=== PATIENT | male | born 1970 | race Caucasian/White ===

== ENCOUNTER → 2019-08-09 11:12 | Outpatient (BNVA) | payer BC, SELFPAY | PROVIDERS: Family Provider Nurse Practitioner; PCP Nurse Practitioner; Visit Provider Nurse Practitioner | DX: J40 Bronchitis, not specified as acute or chronic (principal); R05 Cough | CPT/HCPCS: 71046; 85025 ==

== ENCOUNTER → 2019-08-31 10:22 | Outpatient (BNVA) | payer BC, SELFPAY | PROVIDERS: Family Provider Nurse Practitioner; PCP Nurse Practitioner; Visit Provider Nurse Practitioner Family | DX: R05 Cough (principal) | CPT/HCPCS: 71046 ==

== ENCOUNTER 2019-09-30 15:46 | Outpatient (CLI) | payer BC, SELFPAY ==
--- NOTE | 2019-09-30 15:50 | CT_ITS ---
WS: [id number] CT scan of the chest without IV contrast, additional two-dimensional coronal and sagittal reconstruct ion was performed. 09/30/2019 Clinical Data: FOREIGN BODY IN PHARYNX Comparison: None. DLP: 973.[address] scans at [facility] use at least one of these dose optimization techniques: automat ed exposure control; mA and/or kV adjustment per patient size (includes targeted exams where dose is matched to clinical indication); or iterative reconstruction. Findings: There is a patchy opacity in the right lower lobe which could represent obstructive pneumonia. The pa tient may have ingested a foreign body which is partially blocking the right lower lobe bronchus alth ough no definite foreign body is seen within the right lower lobe bronchus. This opacity could also r epresent an allergic pneumonia. The remainder of the lungs is clear. The trachea bifurcates normally into the bronchi. No nodules, masses or effusions are seen. The heart size is normal with no pericardial effusion. The pulmonary arterial system and thoracic aorta demonstrate no abnormalities or dilatations. There is no axillary or significant mediastinal adenopathy. The upper abdomen is not remarkable. The bony thorax is normal. CT/CT chest wo con [id number] Impression: 1. Patchy opacity in right lower lobe which could represent obstructive or ozzy rgic pneumonia. 2. Recommend repeat PA and lateral chest or CT chest following bronchoscopy.
== END 2019-09-30 15:47 | disposition home or self-care (01) ==
LOC: RADWPI 15:49
PROVIDERS: Family Provider Nurse Practitioner; PCP Nurse Practitioner; Visit Provider Nurse Practitioner Family
DX: T17.208A Unspecified foreign body in pharynx causing other injury, initial encounter (principal); X58.XXXA Exposure to other specified factors, initial encounter
CPT/HCPCS: 71250

== ENCOUNTER 2019-10-05 10:36 | Day surgery (SDC) | payer BC, SELFPAY ==
[2019-10-04 15:35] VITALS: BMI 27.1
[2019-10-05 10:46] VITALS: BP 115/88; PULSE 71; RESP 18; TEMP 36.9; O2SAT 97
[2019-10-05 11:14] VITALS: RESP 18; O2SAT 98
[2019-10-05] MEDS: fentaNYL 50 mcg/mL INJ 2mL IVP (11:14)
[2019-10-05] MEDS: sodium chloride 0.9% 1,000 ML 30 ML IV (11:26)
--- NOTE | 2019-10-05 11:38 | ANES.PREANE2 ---
Pre-Anesthetic Assessment Pre-Anesthetic Assessment: Height/Weight: Height 1.85 m Weight 93.44 kg Temp Pulse Resp BP Pulse Ox 98.4 F 71 18 115/88 98 10/05/19 10:46 10/05/19 10:46 10/05/19 11:14 10/05/19 10:46 10/05/19 11:14 Preop Diagnosis: Aspirated foreign body Proposed Procedure: Operation Date: 10/05/19 12:10 Proposed Procedures p Bronchoscopy(Not Applicable) - Ilya Hawkins MD Familial anesthetic complications: None Was Beta Fadi taken within 24 hours: N/A Last intake: Intake NPO > 8 hrs Last Liquid Date 10/04/19 Last Solid Date 10/04/19 Social: Social History: No alcohol and No tobacco Exam: Pre-Anes Outpt Exam: alert, oriented x 3, clear to auscultation bilaterally and regular rate & rhythm Additional Exam Findings (including area of procedure): slight wheeze R lower lung Airway: Cervical ROM: WNL MP: 2 Dentition: Other (missing) Pulmonary: Comments: allergies RLL pneumonia w/ foreign body aspiration - pistachio shell Anesthetic Plan: ASA status: 2 Anesthesia: General Risk of > 500 ml blood loss (7ml/kg in children): No Meds/Allergies Current Medications: Current Medications Generic Name Dose Route Start Last Admin Trade Name Freq PRN Reason Stop Dose Admin Fentanyl 50 mcg 10/05/19 07:23 10/05/19 11:14 Sublimaze IVP 50 mcg Q10M PRN Administration Preop Pain Sodium Chloride 1,000 mls @ 30 ml s/hr 10/05/19 07:30 10/05/19 11:26 Sodium Chloride 0.9% IV 10/06/19 07:29 30 mls/hr .Q24H THEODORE Administration PFSH Anesthesia PFSH: Medical History (Updated 10/03/19 @ 12:59 by Ilya Hawkins MD) DDD (degenerative disc disease), lumbosacral Environmental and seasonal allergies Surgical History No history of previous surgery Family History Other Cancer Denies family history of Bleeding disorder Social History Smoking and tobacco status: never smoked Second hand smoke exposure: No Smoking risk assessment/counseling performed?: No Alcohol intake: current Alcohol intake frequency: holidays/special occasions only Desire information about alcohol rehabilitation?: No Counseling given: No Desire information about substance/drug rehabilitation?: No Counseling given: No Adopted: No Caregiver/support person: No Lives independently: Yes Household members: spouse Housing: House Marital status: Current occupational status: employed Current occupation: Self-Employed History of recent travel: No Current gender identity: Male Data Anesthesia Cardiac Studies: No Data to Display
--- NOTE | 2019-10-05 11:58 | W.PM.OPSUD ---
Surgery/Procedure H&P Update DATE OF PROCEDURE: October 05, 2019 DATE H&P PERFORMED: 10/03/19 H&P UPDATE INFORMATION: I have reviewed H&P completed within last 30 days, I have examined patient prior to procedure and No changes to prior documentation PREOP DIAGNOSIS: Aspirated foreign body PLANNED PROCEDURE: Bronchoscopy with inspection of the airway, removal of the foreign body, control of bleeding Operation Date: 10/05/19 12:10 Proposed Procedures p Bronchoscopy(Not Applicable) - Ilya Hawkins MD
[2019-10-05 12:55] VITALS: RESP 18; O2SAT 99
[2019-10-05] MEDS: fentaNYL 50 mcg/mL INJ 2mL 100 MCG IVP (12:55)
--- NOTE | 2019-10-05 13:25 | PM.OP ---
Operative Report Date of procedure: October 05, 2019 Pre-op Diagnosis: Aspirated foreign body Post-op diagnosis: same Brief History: This is a 49-year-old gentleman who is undergoing bronchoscopic evaluation for foreign body aspiration. Procedure: Name of the procedure: Bronchoscopy with bronchoalveolar lavage, removal of foreign body and control of bleeding. Indication: Aspirated foreign body. Anesthesia: Monitored anesthesia care. Local anesthesia: 1% lidocaine instilled on the vocal cords, 3 mL, 1% lidocaine in the airway and mert a total of 5 mL. Description of the procedure: The patient was positioned optimally. Monitored anesthesia care was initiated by the anesthesia team. The bronchoscope was advanced through the mouth. The vocal cords and epiglottis were anesthetized with 1% lidocaine. The bronchoscope was passed through the vocal cords and the airway was anesthetized with 1% lidocaine again. In a systematic way bilateral lung slide and examined. The bronchoscope was advanced into the left mainstem bronchus and advanced into the left upper lobe, lingula and lower lobes. All segments were examined up to third subsegmental level. There was no abnormalities. The bronchoscope was then introduced into the right mainstem bronchus. A foreign body occluding the right bronchus intermedius was immediately visualized. The right upper lobe bronchus and segments were without abnormalities. There was significant erythema around the foreign body. Using a forcep the foreign body was removed. The foreign body appeared to be an intact pistachio shell. The bronchoscope was then reintroduced. There was significant erythema, swelling and narrowing of the bronchus intermedius. I was able to pass the bronchoscope through the narrowed opening. There was visible pus in the right middle lobe and lower lobe bronchi. A bronchoalveolar lavage was performed from the anterior segment of right lower lobe. The bronchoalveolar lavage specimen was sent for Gram stain and culture. Complications: There is no immediate complications.
[2019-10-05 13:28] VITALS: BP 130/81; PULSE 87; RESP 18; TEMP 37.1; O2SAT 98
[2019-10-05 13:53] VITALS: BP 105/60; PULSE 72; RESP 18; O2SAT 98
== END 2019-10-05 15:45 | disposition home or self-care (01) ==
PROVIDERS: PCP Nurse Practitioner; Visit Provider Internal Medicine Critical Care Medicine
PROC: 0BJ08ZZ Inspection of Tracheobronchial Tree, Via Natural or Artificial Opening Endoscopic (ICD-10-PCS; CPT 31622; principal; 2019-10-05 12:00)
DX: T17.520A Food in bronchus causing asphyxiation, initial encounter (principal)
CPT/HCPCS: 12345; 31635; 87070; 87075; 87077; 87186; 87205; 96374; J1100; J2250; J2704; J3010; J3490; J7030

== ENCOUNTER → 2022-12-23 15:20 | Outpatient (BNVA) | payer OTHER, SELFPAY | PROVIDERS: PCP Nurse Practitioner Family; Visit Provider Nurse Practitioner Family | DX: M25.50 Pain in unspecified joint (principal); R39.12 Poor urinary stream | CPT/HCPCS: 80053; 85025; G0103 ==

== ENCOUNTER 2023-05-28 10:35 | Day surgery (SDC) | payer OTHER, SELFPAY ==
--- NOTE | 2023-05-28 10:10 | W.PM.OPSFHP ---
Same Day Surgery H&P Indication for Procedure/HPI DATE OF PROCEDURE: May 28, 2023 CHIEF COMPLAINT/INDICATIONFOR SURGICAL PROCEDURE: need for screening colonoscopy PREOP DIAGNOSIS: need for screening colonoscopy PLANNED PROCEDURE: Operation Date: 05/28/23 11:40 Proposed Procedures p 36514 - colonoscopy K64.4 K62.89(Not Applicable) - Reyes Alex MD Medications/Allergies* Home Medications Medication Instructions Recorded Confirmed Type cetirizine 10 mg tablet (Zyrtec) 10 mg PO DAILY 08/09/19 05/26/23 History cyclobenzaprine 10 mg tablet 10 mg PO TID PRN Muscle Spasm 08/09/19 05/26/23 History acetaminophen 500 mg tablet 1,000 mg PO Q6H PRN Pain 10/05/19 05/26/23 History (Tylenol Extra Strength) ibuprofen 800 mg tablet 800 mg PO Q6H PRN Pain 10/05/19 05/26/23 History Allergies/Adverse Reactions Allergy/AdvReac Type Severity Reaction Status Date / Time aspirin Allergy unknown Verified 04/01/23 15:31 Pertinent History/Comorbid Conditions* Medical History (Updated 03/10/23 @ 10:23 by Reyes Alex MD) DDD (degenerative disc disease), lumbosacral Environmental and seasonal allergies Surgical History (Updated 08/09/19 @ 11:19 by KWASI Kim) No history of previous surgery Family History (Updated 08/09/19 @ 08:50 by Sabine Gonzalez MA) Cancer Denies family history of Bleeding disorder Social History Smoking and tobacco/nicotine status: never used tobacco/nicotine Second hand smoke exposure: No Alcohol intake: current Alcohol intake frequency: holidays/special occasions only Substance/Drug Use: never Adopted: No Caregiver/support person: No Lives independently: Yes Household members: spouse Housing: House Marital status: Current occupational status: employed Current occupation: Self-Employed Do you think of yourself as: Straight/Heterosexual Current gender identity: Male Pertinent Exam Findings alert, oriented x 3 and clear to auscultation bilaterally Recommendations Surgery/Procedure today Coding Level of Care Code Acute Code for Chg Fwd
[2023-05-28 10:41] VITALS: BP 125/78; PULSE 66; RESP 18; TEMP 36.5; O2SAT 98
--- NOTE | 2023-05-28 11:01 | P.ANESASSM_ITS ---
Pre-Anesthetic Assessment Height/Weight: Height 1.85 m Weight 83.915 kg Temp Pulse Resp BP Pulse Ox O2 Del Method 97.7 F 66 18 125/78 98 Room Air 05/28/23 10:41 05/28/23 10:41 05/28/23 10:41 05/28/23 10:41 05/28/23 10:41 05/28/23 10:41 Preop Diagnosis: need for screening colonoscopy Operation Date: 05/28/23 11:40 Proposed Procedures p 45640 - colonoscopy K64.4 K62.89(Not Applicable) - Reyes Alex MD Was Beta Fadi taken within 24 hours: N/A Was Clonidine taken within 24 hours: N/A Last intake: Intake Last Liquid Date 05/27/23 Last Liquid Time 19:30 Last Solid Date 05/26/23 Last Solid Time 22:00 Last Intake: 22:00 Social No alcohol and No tobacco Exam alert, oriented x 3, clear to auscultation bilaterally and regular rate & rhythm Airway Submandibular: within normal limits Cervical ROM: within normal limits Mallampati: Class I History/ROS No significant complaints Pulmonary None reported CV/HEM None reported bph Hepatic None reported GI None reported Metabolic None reported Musc/skel None reported Neuropsych None reported Anesthetic Plan ASA status: 1 Anesthesia: MAC Risk of > 500 ml blood loss (7ml/kg in children): Yes, adequate IV access and fluids planned Medications/Allergies Home Medications Medication Instructions Recorded Confirmed Last Taken Type cetirizine 10 mg tablet (Zyrtec) 10 mg PO DAILY 08/09/19 05/26/23 05/26/23 History cyclobenzaprine 10 mg tablet 10 mg PO TID PRN Muscle Spasm 08/09/19 05/26/23 Unknown History compressor, for nebulizer #1 ea 08/16/19 05/26/23 Unknown Rx nebulizer accessories #1 ea 08/16/19 05/26/23 Unknown Rx fluticasone propionate 50 1 spray intranasal Q12H 30 days 10/03/19 05/26/23 10/05/19 Rx mcg/actuation nasal #16 grams spray,suspension (Flonase Allergy Relief) acetaminophen 500 mg tablet 1,000 mg PO Q6H PRN Pain 10/05/19 05/26/23 05/19/23 History (Tylenol Extra Strength) ibuprofen 800 mg tablet 800 mg PO Q6H PRN Pain 10/05/19 05/26/23 10/04/19 History meloxicam 15 mg tablet 15 mg PO DAILY #30 tabs 12/23/22 05/26/23 05/26/23 Rx tamsulosin 0.4 mg capsule (Flomax) 0.4 mg PO DAILY #30 caps 12/23/22 05/26/23 05/26/23 Rx Allergies Allergy/AdvReac Type Severity Reaction Status Date / Time aspirin Allergy unknown Verified 05/28/23 10:48 [facility] Anesthesia Medical History DDD (degenerative disc disease), lumbosacral Environmental and seasonal allergies Surgical History No history of previous surgery Family History Other Cancer Denies family history of Bleeding disorder Social History Smoking and tobacco/nicotine status: never used tobacco/nicotine Second hand smoke exposure: No Alcohol intake: current Alcohol intake frequency: holidays/special occasions only Substance/Drug Use: never Adopted: No Caregiver/support person: No Lives independently: Yes Household members: spouse Housing: House Marital status: Current occupational status: employed Current occupation: Self-Employed Do you think of yourself as: Straight/Heterosexual Current gender identity: Male Data Anesthesia Cardiac Studies: No Data to Display
[2023-05-28] MEDS: sodium chloride 0.9% 1,000 ML 30 ML IV (11:09)
[2023-05-28 12:00] VITALS: BP 106/65; PULSE 63; RESP 14; TEMP 36.1; O2SAT 99
[2023-05-28 12:08] VITALS: BP 126/91; PULSE 61; RESP 16; O2SAT 100
--- NOTE | 2023-05-28 12:40 | ANE.PACU2 ---
Inpatient post-anesthesia follow up: Airway intact: Yes Vital signs: Temperature 97.0 F Pulse Rate 61 Respiratory Rate 16 Blood Pressure 126/91 Pulse Oximetry 100 Oxygen Delivery Me thod Room Air Oxygen Flow Rate Fraction of Inspir ed Oxygen Hydration adequate: Yes Nausea and vomiting: No Pain level: 1 Mental status: Baseline
== END 2023-05-28 12:40 | disposition home or self-care (01) ==
PROVIDERS: PCP Nurse Practitioner Family; Visit Provider Surgery
PROC: 0DJD8ZZ Inspection of Lower Intestinal Tract, Via Natural or Artificial Opening Endoscopic (ICD-10-PCS; CPT 45378; principal; 2023-05-28 11:40)
DX: Z12.11 Encounter for screening for malignant neoplasm of colon (principal); D12.5 Benign neoplasm of sigmoid colon
CPT/HCPCS: 45385; 88305; J2704; J7030

== ENCOUNTER → 2024-01-04 08:31 | Outpatient (BNVA) | payer OTHER, SELFPAY | PROVIDERS: PCP Nurse Practitioner Family; Visit Provider Clinical Nurse Specialist Adult Health | DX: M15.9 Polyosteoarthritis, unspecified (principal); N40.0 Benign prostatic hyperplasia without lower urinary tract symptoms | CPT/HCPCS: 80053; 80061; 84153; 85025 ==

== ENCOUNTER → 2025-01-26 13:27 | Outpatient (BNVA) | payer OTHER, SELFPAY | PROVIDERS: PCP Clinical Nurse Specialist Adult Health; Visit Provider Clinical Nurse Specialist Adult Health | DX: Z00.00 Encounter for general adult medical examination without abnormal findings (principal); N40.1 Benign prostatic hyperplasia with lower urinary tract symptoms; R39.11 Hesitancy of micturition | CPT/HCPCS: 80053; 80061; 84443; 85025; G0103 ==